=== PATIENT | male | born 1990 | race Hispanic/Latino ===

== ENCOUNTER 2018-02-07 23:26 | Emergency (ER) | payer SELFPAY | END 2018-02-08 02:03 | disposition home or self-care (01) | LOC: EDH 23:26 | DX: R07.89 Other chest pain (principal); Z90.49 Acquired absence of other specified parts of digestive tract | CPT/HCPCS: 71046 ==

== ENCOUNTER 2019-03-12 12:50 | Emergency (ER) | payer SELFPAY ==
[2019-03-12] MEDS ORDERED: IBUPROFEN 600 MG TABLET ONE (13:17)
== END 2019-03-12 13:23 | disposition home or self-care (01) ==
LOC: EDH 12:50
DX: S93.621A Sprain of tarsometatarsal ligament of right foot, initial encounter (principal); Z90.49 Acquired absence of other specified parts of digestive tract; Z87.891 Personal history of nicotine dependence; W22.01XA Walked into wall, initial encounter; Y93.89 Activity, other specified; Y92.89 Other specified places as the place of occurrence of the external cause; Y99.8 Other external cause status
CPT/HCPCS: 73630

== ENCOUNTER 2019-06-21 00:03 | Emergency (ER) | payer SELFPAY ==
[2019-06-21] MEDS ORDERED: IBUPROFEN 600 MG TABLET ONE (00:45)
[2019-06-21] MEDS ORDERED: PENICILLIN G BENZATHINE LA 1.2 MILUNITS/2 ML SYG ONE (00:47)
== END 2019-06-21 01:00 | disposition home or self-care (01) ==
LOC: EDH 00:03
DX: J02.9 Acute pharyngitis, unspecified (principal); M79.10 Myalgia, unspecified site
CPT/HCPCS: 96372; 99283; J0561

== ENCOUNTER 2020-03-28 07:52 | Emergency (ER) | payer OTHER, SELFPAY | END 2020-03-28 09:05 | disposition home or self-care (01) | LOC: EDH 07:52 | DX: R50.9 Fever, unspecified (principal); Z20.828 Contact with and (suspected) exposure to other viral communicable diseases | CPT/HCPCS: 71045 ==

== ENCOUNTER 2023-05-16 12:12 | Emergency (ER) | payer OTHER, SELFPAY ==
[~2023-05-16] VITALS: Ht 165.1 cm; Wt 63.5 kg
[2023-05-16 12:45] VITALS: O2SAT 99
[2023-05-16 13:11] LABS: BASOPHILS # (AUTO) 0.04 K/uL (0.00-0.20); BASOPHILS % (AUTO) 0.4 % (0.0-5.0); EOSINOPHILS # (AUTO) 0.07 K/uL (0.00-0.70); EOSINOPHILS % (AUTO) 0.6 % (0.0-8.0); HEMATOCRIT 44.7 % (42-54); IMMATURE GRANULOCYTE ABSOLUTE 0.02 K/uL (0-1); LYMPHOCYTES % (AUTO) 18.3 % (21.0-51.0); MEAN CORPUSCULAR VOLUME 91.2 fL (79-99); MONOCYTES # (AUTO) 0.8 K/uL (0.1-1.0); MONOCYTES % (AUTO) 6.9 % (3.0-13.0); NEUTROPHILS # (AUTO) 8.1 K/uL (1.8-7.7); NEUTROPHILS % (AUTO) 73.6 % (40.0-77.0); PLATELET COUNT (AUTO) 246 K/uL (130-400); RED CELL DISTRIBUTION WIDTH 12.3 % (11.0-15.5); WHITE BLOOD COUNT (AUTO) 10.9 K/uL (4.8-10.8)
[2023-05-16 13:23] LABS: CARBON DIOXIDE 31 mmol/L (21-32); CHLORIDE 103 mmol/L (101-111); CREATININE 1.1 mg/dL (0.5-1.5); GLOMERULAR FILTR. RATE CALC 90 mL/min (>90); GLUCOSE,RANDOM 83 mg/dL (70-105); SODIUM SERUM 141 mmol/L (136-145); UREA NITROGEN, BLOOD 16 mg/dL (7-18)
[2023-05-16 13:25] LABS: ALANINE AMINOTRANSFERASE 18 U/L (12-78); ASPARTATE AMINOTRANSFERASE 20 U/L (10-37); BILIRUBIN,TOTAL 0.6 mg/dL (0.2-1.0); TOTAL PROTEIN, SERUM 7.3 g/dL (6.0-8.3)
[2023-05-16 13:25] LABS: APPEARANCE,URINE CLEAR (CLEAR); BILIRUBIN,URINE NEGATIVE (NEGATIVE); COLOR,URINE YELLOW (YELLOW); GLUCOSE, URINE (UA) NEGATIVE (NEGATIVE); KETONES,URINE NEGATIVE (NEGATIVE); LEUKOCYTE ESTERASE ,URINE NEGATIVE Leu/uL (NEGATIVE); NITRATE,URINE NEGATIVE (NEGATIVE); OCCULT BLOOD,URINE NEGATIVE (NEGATIVE); PH,URINE 6.5 (5.0-8.0); PROTEIN,URINE 10 mg/dL (NEGATIVE); UROBILINOGEN,URINE 0.2 mg/dL (0.2-1.0)
[2023-05-16 13:32] LABS: CRP QUANTITATIVE < 2.00 mg/L (0.00-9.0)
[2023-05-16 13:32] LABS: ADD UA MICROSCOPIC YES
[2023-05-16 13:49] LABS: BACTERIA,URINE RARE /HPF (None Seen); MUCUS,URINE RARE LPF (None Seen); RBC,URINE 0-1 /HPF (0-1); SQUAMOUS EPITHELIAL CELL,UR RARE /HPF (0-2)
[2023-05-16 14:42] LABS: ERYTHROCYTE SEDIMENTATION RATE 4 MM/HR (0-15)
[2023-05-16 15:13] VITALS: BP 130/75; PULSE 70; RESP 20
== END 2023-05-16 15:18 | disposition home or self-care (01) ==
LOC: EDH 12:12
DX: M79.642 Pain in left hand (principal)
CPT/HCPCS: 36415; 73130; 80053; 81001; 83605; 85025; 85651; 86140; 87040